=== PATIENT | male | born 1965 | race Caucasian/White ===

== ENCOUNTER 2016-12-05 14:19 | Emergency (ER) | payer OTHER ==
[~2016-12-05] VITALS: Ht 154.9 cm; Wt 65.8 kg
[~2016-12-05 14:19] MED LIST: ANAFRANIL50 MG PO; BACTRIM DS 8001 TA1 PO; CATAFLAM50 MG PO; CELEXA40 MG PO; CEPHALEXIN500 M1 PO; CLOMIPRAMINE HC50 MG PO; CLONAZEPAM1 M1 PO; CYMBALTA30 MG PO; DONNATAL1 TAB PO; GEODON20 MG PO; GEODON60 MG PO; KLONOPIN1 MG PO; LEVAQUIN750 M1 PO; MUCINEX ER600 MG PO; NORFLEX100 MG PO; OMEGA-3 FISH1200 MG PO; PEPCID20 MG PO; PRAVACHOL20 MG PO; PREDNISONE10 MG PO; PRILOSEC20 MG PO; VIBRAMYCIN100 MG PO; VITAMIN D1000 IU PO; XANAX1 MG PO
[2016-12-05 14:34] VITALS: BP 138/95
[2016-12-05] MEDS ORDERED: XANAX1 MG PO (15:07)
[2016-12-05 15:17] LABS: BASO # 0.1 10*3/uL (0.0-0.1); BASO % 0.5 % (0.0-1.0); EOS # 0.1 10*3/uL (0.0-0.4); HEMATOCRIT 48.9 % (42.0-52.0); HEMOGLOBIN 16.4 g/dl (14.0-18.0); LYMPH # 2.8 10*3/uL (1.3-4.4); LYMPH % 29.4 % (27.0-41.0); MEAN CELL VOLUME 86.7 fl (80.0-94.0); MEAN CORPUSCULAR HGB 29.1 pg (27.0-31.0); MEAN CORPUSCULAR HGB CONC 33.5 g/dl (33.0-37.0); MONO # 0.6 10*3/uL (0.1-1.0); MONO % 5.8 % (3.0-9.0); NEUT # 5.9 10*3/uL (2.3-7.9); PLATELET COUNT AUTOMATED 240 10*3/uL (130-400); RED BLOOD COUNT 5.64 10*6/uL (4.50-5.90); RED CELL DISTRI WIDTH 12.7 % (0-14.5); WHITE BLOOD COUNT 9.4 10*3/uL (4.8-10.8)
[2016-12-05 15:33] LABS: MAGNESIUM 2.3 mg/dL (1.5-2.1)
[2016-12-05 15:34] LABS: ALBUMIN 4.1 gm/dl (3.1-4.5); ALKALINE PHOSPHATASE 70 U/L (45-117); BILIRUBIN, TOTAL 0.5 mg/dl (0.2-1.0); BUN 11 mg/dl (7-24); CARBON DIOXIDE 26 mmol/L (21-32); CHLORIDE 106 mmol/L (98-107); EST GLOM FILT AFRICAN AMERICAN > 60 ml/min; GLUCOSE 97 mg/dL (65-99); POTASSIUM 4.1 mmol/L (3.5-5.1); SGOT/AST 13 IU/L (3-35); SGPT/ALT 32 U/L (12-78); SODIUM 142 mmol/L (136-145); TOTAL PROTEIN 8.1 gm/dL (6.4-8.2)
[2016-12-05 15:50] LABS: BILIRUBIN NEGATIVE (NEGATIVE); BLOOD TRACE-INTACT (NEGATIVE); CLARITY CLEAR (CLEAR); COLOR YELLOW (YELLOW); GLUCOSE NEGATIVE (NEGATIVE); KETONE TRACE (NEGATIVE); LEUKO ESTERASE NEGATIVE (NEGATIVE); NITRITE NEGATIVE (NEGATIVE); PROTEIN NEGATIVE (NEGATIVE); SPECIFIC GRAVITY <= 1.005 (1.005-1.030); UROBILINOGEN 0.2 E.U./dl (0.2-1.0)
[2016-12-05 16:15] LABS: RBC 0-2 rbc/hpf (0-2); URINE REFLEX COMMENT NO (NO); WBC 0-2 wbc/hpf (0-5)
[2016-12-05] MEDS ORDERED: IBU800 MG PO (16:40)
[2016-12-10] MEDS ORDERED: KLONOPIN1 M1 PO (01:01)
[2016-12-10] MEDS ORDERED: K-TAB20 MEQ PO (01:29)
[2017-01-05] MEDS ORDERED: ARIPIPRAZOLE10 MG PO (17:43)
[2017-01-05] MEDS ORDERED: FLUOXETINE HYDR20 M1 PO (17:43)
[2017-01-05] MEDS ORDERED: SERTRALINE HYD100 MG PO (17:44)
[2017-02-02] MEDS ORDERED: ABILIFY20 MG PO ×2 (12:10→13:25)
[2017-02-02] MEDS ORDERED: TRAZODONE50 MG PO (12:10)
== END 2016-12-05 16:44 | disposition home or self-care (01) ==
LOC: ED 14:19
PROVIDERS: Student in an Organized Health Care Education/Training Program
DX: R10.33 Periumbilical pain (principal); R30.0 Dysuria; F41.9 Anxiety disorder, unspecified; J44.9 Chronic obstructive pulmonary disease, unspecified; E78.5 Hyperlipidemia, unspecified; K21.9 Gastro-esophageal reflux disease without esophagitis; F32.9 Major depressive disorder, single episode, unspecified; F20.9 Schizophrenia, unspecified; Z88.0 Allergy status to penicillin; Z88.1 Allergy status to other antibiotic agents; Z88.6 Allergy status to analgesic agent; Z88.8 Allergy status to other drugs, medicaments and biological substances; Z79.899 Other long term (current) drug therapy

== ENCOUNTER 2016-12-08 12:26 | Emergency (ER) | payer OTHER ==
[~2016-12-08] VITALS: Ht 180.3 cm; Wt 65.8 kg
[~2016-12-08 12:26] MED LIST changes: +IBU800 MG PO
[2016-12-08] MEDS ORDERED: CITALOPRAM HYDR40 MG PO (13:00)
[2016-12-08 14:31] LABS: BASO # 0.1 10*3/uL (0.0-0.1); BASO % 0.5 % (0.0-1.0); EOS # 0.1 10*3/uL (0.0-0.4); EOS % 0.8 % (1.0-4.0); HEMATOCRIT 46.9 % (42.0-52.0); HEMOGLOBIN 15.9 g/dl (14.0-18.0); LYMPH # 2.7 10*3/uL (1.3-4.4); LYMPH % 28.8 % (27.0-41.0); MEAN CELL VOLUME 85.9 fl (80.0-94.0); MEAN CORPUSCULAR HGB 29.1 pg (27.0-31.0); MEAN CORPUSCULAR HGB CONC 33.9 g/dl (33.0-37.0); MEAN PLATELET VOLUME 10.1 fl (9.6-12.3); MONO # 0.5 10*3/uL (0.1-1.0); MONO % 5.7 % (3.0-9.0); NEUT % 64.1 % (47.0-73.0); PLATELET COUNT AUTOMATED 230 10*3/uL (130-400); RED BLOOD COUNT 5.46 10*6/uL (4.50-5.90); RED CELL DISTRI WIDTH 12.5 % (0-14.5); WHITE BLOOD COUNT 9.4 10*3/uL (4.8-10.8)
[2016-12-08 14:32] LABS: BILIRUBIN NEGATIVE (NEGATIVE); BLOOD NEGATIVE (NEGATIVE); CLARITY CLEAR (CLEAR); COLOR STRAW (YELLOW); GLUCOSE NEGATIVE (NEGATIVE); KETONE TRACE (NEGATIVE); LEUKO ESTERASE NEGATIVE (NEGATIVE); NITRITE NEGATIVE (NEGATIVE); PROTEIN NEGATIVE (NEGATIVE); SPECIFIC GRAVITY <= 1.005 (1.005-1.030); UROBILINOGEN 0.2 E.U./dl (0.2-1.0)
[2016-12-08 14:47] LABS: RBC 0-2 rbc/hpf (0-2); URINE REFLEX COMMENT NO (NO); WBC 0-2 wbc/hpf (0-5)
[2016-12-08 14:47] LABS: ALKALINE PHOSPHATASE 62 U/L (45-117); BILIRUBIN, TOTAL 0.5 mg/dl (0.2-1.0); BUN 8 mg/dl (7-24); CARBON DIOXIDE 27 mmol/L (21-32); CHLORIDE 107 mmol/L (98-107); EST GLOM FILT AFRICAN AMERICAN > 60 ml/min; GLUCOSE 78 mg/dL (65-99); POTASSIUM 3.6 mmol/L (3.5-5.1); SGOT/AST 13 IU/L (3-35); SGPT/ALT 22 U/L (12-78); SODIUM 143 mmol/L (136-145); TOTAL PROTEIN 7.4 gm/dL (6.4-8.2)
[2016-12-08] MEDS ORDERED: Motrin,Rufen800 MG PO (17:56)
[2016-12-08 20:01] VITALS: BP 112/68
[2016-12-10] MEDS ORDERED: KLONOPIN1 M1 PO (01:01)
[2016-12-10] MEDS ORDERED: K-TAB20 MEQ PO (01:29)
[2017-01-05] MEDS ORDERED: FLUOXETINE HYDR20 M1 PO (17:43)
[2017-01-05] MEDS ORDERED: ARIPIPRAZOLE10 MG PO (17:43)
[2017-01-05] MEDS ORDERED: SERTRALINE HYD100 MG PO (17:44)
[2017-02-02] MEDS ORDERED: ABILIFY20 MG PO ×2 (12:10→13:25)
[2017-02-02] MEDS ORDERED: TRAZODONE50 MG PO (12:10)
== END 2016-12-08 22:46 | disposition home or self-care (01) ==
LOC: ED 12:26
PROVIDERS: Nurse Practitioner Family
DX: G89.29 Other chronic pain (principal); R10.30 Lower abdominal pain, unspecified; R51 Headache; Z88.0 Allergy status to penicillin; Z88.1 Allergy status to other antibiotic agents; Z88.6 Allergy status to analgesic agent; Z88.8 Allergy status to other drugs, medicaments and biological substances; Z79.899 Other long term (current) drug therapy; F41.9 Anxiety disorder, unspecified; J44.9 Chronic obstructive pulmonary disease, unspecified; K21.9 Gastro-esophageal reflux disease without esophagitis; E78.5 Hyperlipidemia, unspecified; F20.9 Schizophrenia, unspecified; F32.9 Major depressive disorder, single episode, unspecified; F17.200 Nicotine dependence, unspecified, uncomplicated

== ENCOUNTER 2016-12-15 17:18 | Emergency (ER) | payer OTHER ==
[~2016-12-15] VITALS: Ht 180.3 cm; Wt 65.8 kg
[~2016-12-15 17:18] MED LIST changes: +CITALOPRAM HYDR40 MG PO; +K-TAB20 MEQ PO; +KLONOPIN1 M1 PO; +Motrin,Rufen800 MG PO
[2016-12-15 17:27] VITALS: BP 130/88
[2016-12-15 18:29] LABS: BASO # 0.1 10*3/uL (0.0-0.1); BASO % 0.4 % (0.0-1.0); EOS # 0.1 10*3/uL (0.0-0.4); EOS % 0.6 % (1.0-4.0); HEMOGLOBIN 14.3 g/dl (14.0-18.0); IG # 0.1 10*3/uL (0.0-0.1); LYMPH # 2.8 10*3/uL (1.3-4.4); MEAN CELL VOLUME 88.3 fl (80.0-94.0); MEAN CORPUSCULAR HGB 29.4 pg (27.0-31.0); MEAN CORPUSCULAR HGB CONC 33.3 g/dl (33.0-37.0); MEAN PLATELET VOLUME 10.8 fl (9.6-12.3); MONO # 0.7 10*3/uL (0.1-1.0); MONO % 4.2 % (3.0-9.0); NEUT % 76.4 % (47.0-73.0); PLATELET COUNT AUTOMATED 196 10*3/uL (130-400); RED BLOOD COUNT 4.87 10*6/uL (4.50-5.90); RED CELL DISTRI WIDTH 12.6 % (0-14.5); WHITE BLOOD COUNT 15.8 10*3/uL (4.8-10.8)
[2016-12-15 18:50] LABS: ALBUMIN 3.7 gm/dl (3.1-4.5); ALKALINE PHOSPHATASE 53 U/L (45-117); BILIRUBIN, TOTAL 0.4 mg/dl (0.2-1.0); BUN 9 mg/dl (7-24); CARBON DIOXIDE 27 mmol/L (21-32); CHLORIDE 106 mmol/L (98-107); EST GLOM FILT AFRICAN AMERICAN > 60 ml/min; GLUCOSE 76 mg/dL (65-99); POTASSIUM 4.2 mmol/L (3.5-5.1); SGOT/AST 10 IU/L (3-35); SGPT/ALT 18 U/L (12-78); SODIUM 144 mmol/L (136-145); TOTAL PROTEIN 6.9 gm/dL (6.4-8.2)
[2017-01-05] MEDS ORDERED: FLUOXETINE HYDR20 M1 PO (17:43)
[2017-01-05] MEDS ORDERED: ARIPIPRAZOLE10 MG PO (17:43)
[2017-01-05] MEDS ORDERED: SERTRALINE HYD100 MG PO (17:44)
[2017-02-02] MEDS ORDERED: ABILIFY20 MG PO ×2 (12:10→13:25)
[2017-02-02] MEDS ORDERED: TRAZODONE50 MG PO (12:10)
== END 2016-12-15 19:53 | disposition home or self-care (01) ==
LOC: ED 17:18
PROVIDERS: Nurse Practitioner Family
DX: R10.31 Right lower quadrant pain (principal); R10.32 Left lower quadrant pain; R10.12 Left upper quadrant pain; R11.2 Nausea with vomiting, unspecified; F17.200 Nicotine dependence, unspecified, uncomplicated; Z90.89 Acquired absence of other organs; Z98.890 Other specified postprocedural states; Z88.0 Allergy status to penicillin; Z88.6 Allergy status to analgesic agent; Z88.1 Allergy status to other antibiotic agents; Z88.5 Allergy status to narcotic agent; Z88.8 Allergy status to other drugs, medicaments and biological substances

== ENCOUNTER 2016-12-19 11:56 | Emergency (ER) | payer OTHER ==
[~2016-12-19] VITALS: Ht 180.3 cm; Wt 65.8 kg
[2016-12-19] MEDS ORDERED: XANAX2 M1 PO (12:15)
[2016-12-19 12:32] LABS: BILIRUBIN NEGATIVE (NEGATIVE); BLOOD NEGATIVE (NEGATIVE); CLARITY CLEAR (CLEAR); COLOR YELLOW (YELLOW); GLUCOSE NEGATIVE (NEGATIVE); KETONE NEGATIVE (NEGATIVE); LEUKO ESTERASE NEGATIVE (NEGATIVE); NITRITE NEGATIVE (NEGATIVE); PH 6.5 (5.0-9.0); PROTEIN NEGATIVE (NEGATIVE); SPECIFIC GRAVITY <= 1.005 (1.005-1.030); UROBILINOGEN 0.2 E.U./dl (0.2-1.0)
[2016-12-19 12:41] LABS: EPITHELIAL CELLS 0-2; URINE AMPHETAMINES < 1000 (1000ng/ml); URINE BARBITURATES < 200 (200ng/ml); URINE COCAINE < 300 (300ng/ml)
[2016-12-19 12:42] LABS: BASO % 0.4 % (0.0-1.0); EOS # 0.1 10*3/uL (0.0-0.4); EOS % 1.8 % (1.0-4.0); HEMATOCRIT 48.1 % (42.0-52.0); HEMOGLOBIN 16.3 g/dl (14.0-18.0); LYMPH # 2.3 10*3/uL (1.3-4.4); LYMPH % 29.3 % (27.0-41.0); MEAN CELL VOLUME 87.3 fl (80.0-94.0); MEAN CORPUSCULAR HGB 29.6 pg (27.0-31.0); MEAN CORPUSCULAR HGB CONC 33.9 g/dl (33.0-37.0); MEAN PLATELET VOLUME 10.4 fl (9.6-12.3); MONO # 0.3 10*3/uL (0.1-1.0); NEUT # 5.1 10*3/uL (2.3-7.9); NEUT % 64.4 % (47.0-73.0); PLATELET COUNT AUTOMATED 240 10*3/uL (130-400); RED BLOOD COUNT 5.51 10*6/uL (4.50-5.90); RED CELL DISTRI WIDTH 12.6 % (0-14.5)
[2016-12-19 12:42] LABS: URINE REFLEX COMMENT NO (NO)
[2016-12-19 13:00] LABS: BUN 11 mg/dl (7-24); CARBON DIOXIDE 29 mmol/L (21-32); CHLORIDE 105 mmol/L (98-107); EST GLOM FILT AFRICAN AMERICAN > 60 ml/min; GLUCOSE 88 mg/dL (65-99); POTASSIUM 4.3 mmol/L (3.5-5.1); SODIUM 142 mmol/L (136-145)
[2016-12-20 19:26] VITALS: BP 147/87
[2016-12-20] MEDS ORDERED: XANAX2 M1 PO (19:31)
[2017-01-05] MEDS ORDERED: FLUOXETINE HYDR20 M1 PO (17:43)
[2017-01-05] MEDS ORDERED: ARIPIPRAZOLE10 MG PO (17:43)
[2017-01-05] MEDS ORDERED: SERTRALINE HYD100 MG PO (17:44)
[2017-02-02] MEDS ORDERED: TRAZODONE50 MG PO (12:10)
[2017-02-02] MEDS ORDERED: ABILIFY20 MG PO ×2 (12:10→13:25)
== END 2016-12-20 20:11 | disposition home or self-care (01) ==
LOC: ED 11:56
PROVIDERS: Emergency Medicine
DX: F41.9 Anxiety disorder, unspecified (principal); F32.9 Major depressive disorder, single episode, unspecified; F17.200 Nicotine dependence, unspecified, uncomplicated; J44.9 Chronic obstructive pulmonary disease, unspecified; K21.9 Gastro-esophageal reflux disease without esophagitis; E78.5 Hyperlipidemia, unspecified; F20.9 Schizophrenia, unspecified; R00.2 Palpitations; R00.0 Tachycardia, unspecified; Z98.890 Other specified postprocedural states; Z90.89 Acquired absence of other organs; Z88.0 Allergy status to penicillin; Z88.6 Allergy status to analgesic agent; Z88.1 Allergy status to other antibiotic agents; Z88.5 Allergy status to narcotic agent

== ENCOUNTER 2017-03-11 14:41 | Emergency (ER) | payer OTHER ==
[~2017-03-11] VITALS: Wt 65.8 kg
[~2017-03-11 14:41] MED LIST changes: +ABILIFY20 MG PO; +ARIPIPRAZOLE10 MG PO; +FLUOXETINE HYDR20 M1 PO; +SERTRALINE HYD100 MG PO; +TRAZODONE50 MG PO; +XANAX2 M1 PO
[2017-03-11 14:45] VITALS: BP 125/85
== END 2017-03-11 15:14 | disposition home or self-care (01) ==
LOC: ED 14:41
DX: Z76.0 Encounter for issue of repeat prescription (principal); F41.9 Anxiety disorder, unspecified; Z88.0 Allergy status to penicillin; Z88.1 Allergy status to other antibiotic agents; Z88.6 Allergy status to analgesic agent; Z88.8 Allergy status to other drugs, medicaments and biological substances; F12.10 Cannabis abuse, uncomplicated; F17.200 Nicotine dependence, unspecified, uncomplicated

== ENCOUNTER 2017-03-11 18:17 | Emergency (ER) | payer OTHER ==
[~2017-03-11] VITALS: Ht 180.3 cm; Wt 65.8 kg
[2017-03-11 18:42] LABS: BILIRUBIN NEGATIVE (NEGATIVE); BLOOD 1+ (NEGATIVE); CLARITY CLEAR (CLEAR); COLOR YELLOW (YELLOW); GLUCOSE NEGATIVE (NEGATIVE); KETONE NEGATIVE (NEGATIVE); LEUKO ESTERASE NEGATIVE (NEGATIVE); NITRITE NEGATIVE (NEGATIVE); PH 5.5 (5.0-9.0); PROTEIN NEGATIVE (NEGATIVE)
[2017-03-11 19:08] LABS: BACTERIA TRACE; URINE REFLEX COMMENT YES (NO); WBC 0-2 wbc/hpf (0-5)
[2017-03-11 19:13] LABS: BASO % 0.2 % (0.0-1.0); EOS # 0.2 10*3/uL (0.0-0.4); EOS % 1.8 % (1.0-4.0); HEMATOCRIT 40.8 % (42.0-52.0); HEMOGLOBIN 13.8 g/dl (14.0-18.0); LYMPH # 2.5 10*3/uL (1.3-4.4); LYMPH % 26.3 % (27.0-41.0); MEAN CELL VOLUME 86.4 fl (80.0-94.0); MEAN CORPUSCULAR HGB 29.2 pg (27.0-31.0); MEAN CORPUSCULAR HGB CONC 33.8 g/dl (33.0-37.0); MEAN PLATELET VOLUME 9.9 fl (9.6-12.3); MONO # 0.6 10*3/uL (0.1-1.0); MONO % 5.8 % (3.0-9.0); NEUT # 6.2 10*3/uL (2.3-7.9); NEUT % 65.6 % (47.0-73.0); PLATELET COUNT AUTOMATED 189 10*3/uL (130-400); RED BLOOD COUNT 4.72 10*6/uL (4.50-5.90); RED CELL DISTRI WIDTH 12.7 % (0-14.5); WHITE BLOOD COUNT 9.4 10*3/uL (4.8-10.8)
[2017-03-11 19:21] VITALS: BP 142/92
[2017-03-11 19:27] LABS: ALBUMIN 3.2 gm/dl (3.1-4.5); ALKALINE PHOSPHATASE 59 U/L (45-117); BILIRUBIN, TOTAL 0.3 mg/dl (0.2-1.0); BUN 15 mg/dl (7-24); CARBON DIOXIDE 29 mmol/L (21-32); CHLORIDE 105 mmol/L (98-107); EST GLOM FILT AFRICAN AMERICAN > 60 ml/min; GLUCOSE 88 mg/dL (65-99); POTASSIUM 3.9 mmol/L (3.5-5.1); SGOT/AST 19 IU/L (3-35); SGPT/ALT 28 U/L (12-78); SODIUM 142 mmol/L (136-145); TOTAL PROTEIN 6.8 gm/dL (6.4-8.2)
== END 2017-03-11 19:41 | disposition home or self-care (01) ==
LOC: ED 18:17
PROVIDERS: Emergency Medicine; Student in an Organized Health Care Education/Training Program
DX: R31.9 Hematuria, unspecified (principal); F41.9 Anxiety disorder, unspecified; K21.9 Gastro-esophageal reflux disease without esophagitis; F32.9 Major depressive disorder, single episode, unspecified; E78.5 Hyperlipidemia, unspecified; J44.9 Chronic obstructive pulmonary disease, unspecified; Z88.0 Allergy status to penicillin; Z88.1 Allergy status to other antibiotic agents; Z88.6 Allergy status to analgesic agent; Z88.8 Allergy status to other drugs, medicaments and biological substances

== ENCOUNTER 2017-03-13 14:56 | Emergency (ER) | payer OTHER ==
[~2017-03-13] VITALS: Ht 208.2 cm; Wt 660.4 kg
[2017-03-13 15:03] VITALS: BP 145/82
== END 2017-03-13 15:12 | disposition home or self-care (01) ==
LOC: ED 14:56
DX: Z76.0 Encounter for issue of repeat prescription (principal); R03.0 Elevated blood-pressure reading, without diagnosis of hypertension; F17.200 Nicotine dependence, unspecified, uncomplicated; F41.1 Generalized anxiety disorder; F43.0 Acute stress reaction; F20.9 Schizophrenia, unspecified; F32.9 Major depressive disorder, single episode, unspecified; K21.9 Gastro-esophageal reflux disease without esophagitis; J44.9 Chronic obstructive pulmonary disease, unspecified; E78.5 Hyperlipidemia, unspecified; G89.29 Other chronic pain; Z79.899 Other long term (current) drug therapy; Z88.0 Allergy status to penicillin; Z88.1 Allergy status to other antibiotic agents; Z88.6 Allergy status to analgesic agent; Z88.8 Allergy status to other drugs, medicaments and biological substances

== ENCOUNTER 2017-07-03 16:17 | Inpatient (IN) | payer OTHER ==
[~2017-07-03] VITALS: Ht 180.3 cm; Wt 65.9 kg
--- NOTE | ~2017-07-03 | CON ---
[place], [place] REPORT OF CONSULTATION NAME: YARELI CARPENTER JR [facility] #: [id number] UNIT #: [id number] ROOM: 516 DOCTOR: MICHELLE SKAGGS MD BIRTHDATE: [birth year] DOS: 07/04/2017 The patient was seen today 07/04/2017 at the request of Dr. Gege Reyes for evaluation of chest discomfort. HISTORY OF PRESENT ILLNESS: He is a 52-year-old man with a history of schizophrenia who presented to the Emergency Room with hematuria. He did have some abdominal discomfort associated with this. In the Emergency Room, he was felt to be having chest discomfort and therefore, was admitted for further evaluation of that. At the current time, the patient denies having any chest pain and states that he did not have chest pain in the Emergency Room either. He has told the same history to nursing staff on the medical unit as well as to Dr. Reyes. The patient has had a history of atypical chest pain and was evaluated for this by my partner, Dr. Mike Walls in September 2016. No pathology was found. PAST MEDICAL HISTORY: Includes: 1. Schizophrenia with multiple ER admissions. 2. Generalized anxiety disorder. 3. Gastroesophageal reflux disease. 4. Genital herpes. MEDICATIONS: Prior to admission, alprazolam 2 mg q.8h., Abilify 20 mg daily, trazodone 50 mg at bedtime. ALLERGIES: He lists allergies to multiple medications including PENICILLIN, ACETOMINOPHEN, AZITHROMYCIN, CODEINE, HYDROCODONE, NAPROXEN, RISPERIDONE, AND HYDROXYZINE. REVIEW OF SYSTEMS: The patient denies diplopia or loss of vision. He denies lightheadedness or syncope. He denies orthopnea or PND. He denies fevers, chills, sweats or recent weight change. He denies palpitations, lightheadedness or syncope. Denies any focal weakness. He denies nausea or vomiting. He denies hemoptysis or hematemesis. He denies any pedal edema or abdominal swelling. He denies any skin rashes. He denies any blood in his bowels. He has had blood in his urine and some epigastric pain. He denies any polydipsia, polyuria or heat or cold intolerance. Remainder of the review of systems is negative except as noted above. SOCIAL HISTORY: The patient smokes about a half pack of cigarettes a day. He does not use any alcohol and lives with a cousin. PHYSICAL EXAMINATION: GENERAL: The patient is a slender white male, who is awake, alert and oriented. He has a very flat affect. VITAL SIGNS: Pulse is 88 and regular, blood pressure is 120/72. He is afebrile. He weighs 65.9 kg and has a body mass index of 20.3. HEENT: Normocephalic, atraumatic. Extraocular muscles are intact. Sclerae are clear. Pupils are equal, round and reactive to light. Oral mucosa is moist. [place], [place] REPORT OF CONSULTATION NAME: YARELI CARPENTER JR UNIT #: [id number] ROOM: 516 DOCTOR: MICHELLE SKAGGS MD BIRTHDATE: [birth year] Tongue is midline. NECK: Supple. He has no jugular distention. Carotids are full without bruits. He has no neck or supraclavicular masses. No thyromegaly. LUNGS: Respirations are unlabored. CHEST: Clear to auscultation and percussion. He has no presacral edema or chest wall tenderness. CARDIOVASCULAR: His heart has a regular rhythm. He has no murmurs, rubs or gallops. The PMI is not displaced. There is no precordial heave, lift or thrill. ABDOMEN: Soft and normoactive without masses, organomegaly or bruits. EXTREMITIES: Showed no edema. Peripheral pulses are palpable in the feet. LABORATORY DATA: Electrocardiogram shows sinus rhythm with a right bundle branch block. I compared it against a previous tracing dated 02/02/2017, and there has been no change. The patient did have a myocardial perfusion study done on 09/30/2016. He had diaphragmatic attenuation artifact, but no evidence for ischemia. Ejection fraction was 75%. An echocardiogram done on 09/30/2016 showed sinus rhythm with an ejection fraction of 60%. There was stage I diastolic relaxation abnormalities, no pericardial effusion or valvular disease was seen. IMPRESSION: In summary, he is a 52-year-old man who may have had some epigastric pain, but currently denies any chest pain. His electrocardiogram shows no changes. Cardiac troponin was normal and a cardiac workup in September 2016, showed no evidence for structural or ischemic heart disease. IMPRESSION: 1. Atypical chest pain. No evidence for cardiac source of chest discomfort. 2. History of schizophrenia. PLAN: The patient appears to be hemodynamically compensated without any evidence for coronary artery disease. He may be discharged to home from my standpoint. We will follow up with him as needed. I thank Dr. Reyes for asking our advice regarding his care. MICHELLE SKAGGS MD CM:CONSTR:REPORT OF CONSULTATION 1636 07/04/17 2244 interface
--- NOTE | ~2017-07-03 | WRIGHTHP ---
[place], [place] PATIENT HISTORY AND PHYSICAL EXAM NAME: YARELI CARPENTER JR ACC #: [id number] UNIT #: [id number] ROOM: 516 DOCTOR: LINDA YOU MD BIRTHDATE: [birth year] DOS: 07/03/2017 HISTORY OF PRESENT ILLNESS: The patient is 52 years old. The patient comes in with complaints that he has bleeding when he urinates. He has no abdominal pain, but some minimal urinary urgency and dysuria. The patient states he never had any complaints of chest pain. In fact, the ER admitted him with a diagnosis of chest pain and he absolutely declined, has not had any chest pain as per the patient. He came to the Emergency Room just because of the bleeding that he noticed when he urinates. PAST MEDICAL HISTORY: Significant for: 1. Schizophrenia with multiple ER visits. 2. Generalized anxiety disorder. 3. Genital herpes. 4. Gastroesophageal reflux disorder. MEDICATIONS: Xanax 2 mg q. 8, Abilify 20 mg daily, trazodone 50 at bedtime. SOCIAL HISTORY: Smokes about half a pack of cigarettes a day. Denies using any alcohol. Lives with his cousin. PHYSICAL EXAMINATION: VITAL SIGNS: Graphic trend shows that he is afebrile. Blood pressure 98/52, pulse of 72, respirations 18, temperature 99.0. LUNGS: Diminished breath sounds. No wheezes, rales or rhonchi heard. HEART: Regular. ABDOMEN: Obese. EXTREMITIES: Without any edema. ASSESSMENT AND PLAN: 1. Painless hematuria. His urinalysis does show 3+ blood, 1+ leukocyte esterase, negative nitrite. The patient will be ordered a urine culture, was placed on IV antibiotics and also will have the CT of the abdomen and pelvis to rule out renal tumor or bladder tumors. 2. The patient has schizophrenia. Continue home medications. 3. He was admitted with complaints of chest pain from the ER, but the patient claims that he has not had any chest pains. Rule out myocardial infarction protocol has been negative. Cardiology was consulted. [place], [place] PATIENT HISTORY AND PHYSICAL EXAM NAME: YARELI CARPENTER JR UNIT #: [id number] ROOM: 516 DOCTOR: LINDA YOU MD BIRTHDATE: [birth year] LINDA YOU MD CM:EUGENIOS:PATIENT HISTORY AND PHYSICAL EXAMINATION 7 1 LINDA YOU MD 07/04/17811 interface
[2017-07-03 16:31] VITALS: BP 125/77
[2017-07-03 17:02] LABS: BASO % 0.3 % (0.0-1.0); HEMATOCRIT 42.2 % (42.0-52.0); HEMOGLOBIN 14.4 g/dl (14.0-18.0); LYMPH # 1.6 10*3/uL (1.3-4.4); LYMPH % 14.9 % (27.0-41.0); MEAN CELL VOLUME 86.3 fl (80.0-94.0); MEAN CORPUSCULAR HGB 29.4 pg (27.0-31.0); MEAN CORPUSCULAR HGB CONC 34.1 g/dl (33.0-37.0); MEAN PLATELET VOLUME 10.5 fl (9.6-12.3); MONO # 0.3 10*3/uL (0.1-1.0); MONO % 2.4 % (3.0-9.0); NEUT # 8.6 10*3/uL (2.3-7.9); NEUT % 82.1 % (47.0-73.0); PLATELET COUNT AUTOMATED 110 10*3/uL (130-400); RED BLOOD COUNT 4.89 10*6/uL (4.50-5.90); WHITE BLOOD COUNT 10.5 10*3/uL (4.8-10.8)
[2017-07-03 17:11] LABS: PROTHROMBIN TIME 11.1 SECONDS (9.0-12.4)
[2017-07-03 17:19] LABS: ALBUMIN 3.2 gm/dl (3.1-4.5); ALKALINE PHOSPHATASE 66 U/L (45-117); BILIRUBIN, TOTAL 0.7 mg/dl (0.2-1.0); BUN 17 mg/dl (7-24); CARBON DIOXIDE 25 mmol/L (21-32); CHLORIDE 104 mmol/L (98-107); EST GLOM FILT AFRICAN AMERICAN > 60 ml/min; GLUCOSE 133 mg/dL (65-99); MAGNESIUM 1.8 mg/dL (1.5-2.1); POTASSIUM 3.4 mmol/L (3.5-5.1); SGOT/AST 77 IU/L (3-35); SGPT/ALT 42 U/L (12-78); SODIUM 137 mmol/L (136-145); TOTAL PROTEIN 7.1 gm/dL (6.4-8.2); TROPONIN I < 0.015 ng/ml (<0.045)
[2017-07-03 18:12] LABS: BILIRUBIN 1+ (NEGATIVE); BLOOD 3+ (NEGATIVE); CLARITY SL CLOUDY (CLEAR); COLOR YELLOW (YELLOW); GLUCOSE NEGATIVE (NEGATIVE); KETONE NEGATIVE (NEGATIVE); LEUKO ESTERASE 1+ (NEGATIVE); NITRITE NEGATIVE (NEGATIVE); PH 5.5 (5.0-9.0); PROTEIN TRACE (NEGATIVE); SPECIFIC GRAVITY 1.025 (1.005-1.030)
[2017-07-03 18:27] LABS: RBC 51-100 rbc/hpf (0-2); URINE REFLEX COMMENT YES (NO)
[2017-07-03 19:26] VITALS: BP 109/71
[2017-07-03 19:49] VITALS: BP 115/77
[2017-07-03 20:10] VITALS: BP 116/69
[2017-07-04] VITALS: BP 100/56
[2017-07-04 04:00] VITALS: BP 87/50; BP 98/52
[2017-07-04 08:11] VITALS: BP 96/63
[2017-07-04 12:42] VITALS: BP 98/74
[2017-07-04 16:31] VITALS: BP 120/72
[2017-07-04 21:09] VITALS: BP 108/81
== END 2017-07-04 21:30 | disposition home or self-care (01) | DRG 690 ==
LOC: ED 16:17 → EDHOLD 18:37 → 5E 18:37
PROVIDERS: Student in an Organized Health Care Education/Training Program
DX: N30.01 Acute cystitis with hematuria (principal); F20.9 Schizophrenia, unspecified; B95.0 Streptococcus, group A, as the cause of diseases classified elsewhere; F41.1 Generalized anxiety disorder; R07.89 Other chest pain; K21.9 Gastro-esophageal reflux disease without esophagitis; F17.210 Nicotine dependence, cigarettes, uncomplicated; Z88.0 Allergy status to penicillin; Z88.1 Allergy status to other antibiotic agents; Z88.5 Allergy status to narcotic agent; Z88.8 Allergy status to other drugs, medicaments and biological substances; Z79.899 Other long term (current) drug therapy

== ENCOUNTER 2017-07-08 14:23 | Emergency (ER) | payer OTHER ==
[~2017-07-08] VITALS: Ht 180.3 cm; Wt 65.8 kg
[2017-07-08 14:59] LABS: BILIRUBIN NEGATIVE (NEGATIVE); BLOOD 3+ (NEGATIVE); CLARITY CLEAR (CLEAR); COLOR YELLOW (YELLOW); GLUCOSE NEGATIVE (NEGATIVE); KETONE NEGATIVE (NEGATIVE); LEUKO ESTERASE 1+ (NEGATIVE); NITRITE NEGATIVE (NEGATIVE); PH 5.5 (5.0-9.0); PROTEIN NEGATIVE (NEGATIVE); SPECIFIC GRAVITY <= 1.005 (1.005-1.030); UROBILINOGEN 0.2 E.U./dl (0.2-1.0)
[2017-07-08 15:14] LABS: BACTERIA TRACE; URINE REFLEX COMMENT YES (NO)
[2017-07-08] MEDS ORDERED: LEVAQUIN750 M1 PO (15:34)
[2017-07-08 15:50] VITALS: BP 128/81
== END 2017-07-08 20:38 | disposition home or self-care (01) ==
LOC: ED 14:23
PROVIDERS: Physician Assistant
DX: N30.01 Acute cystitis with hematuria (principal); F17.200 Nicotine dependence, unspecified, uncomplicated; Z88.0 Allergy status to penicillin; Z88.1 Allergy status to other antibiotic agents; Z88.6 Allergy status to analgesic agent; Z88.8 Allergy status to other drugs, medicaments and biological substances; Z79.899 Other long term (current) drug therapy

== ENCOUNTER 2017-11-12 21:07 | Emergency (ER) | payer OTHER ==
[~2017-11-12] VITALS: Ht 180.3 cm; Wt 68.0 kg
[2017-11-12 21:14] VITALS: BP 151/91
[2017-11-12 21:51] LABS: BILIRUBIN NEGATIVE (NEGATIVE); BLOOD NEGATIVE (NEGATIVE); CLARITY TURBID (CLEAR); COLOR YELLOW (YELLOW); GLUCOSE NEGATIVE (NEGATIVE); KETONE NEGATIVE (NEGATIVE); LEUKO ESTERASE NEGATIVE (NEGATIVE); NITRITE NEGATIVE (NEGATIVE); PH 7.5 (5.0-9.0)
[2017-11-12 21:53] LABS: BASO # 0.1 10*3/uL (0.0-0.1); BASO % 0.5 % (0.0-1.0); EOS # 0.3 10*3/uL (0.0-0.4); EOS % 2.5 % (1.0-4.0); HEMATOCRIT 46.9 % (42.0-52.0); HEMOGLOBIN 16.1 g/dl (14.0-18.0); LYMPH # 4.9 10*3/uL (1.3-4.4); LYMPH % 39.3 % (27.0-41.0); MEAN CELL VOLUME 86.1 fl (80.0-94.0); MEAN CORPUSCULAR HGB 29.5 pg (27.0-31.0); MEAN CORPUSCULAR HGB CONC 34.3 g/dl (33.0-37.0); MEAN PLATELET VOLUME 9.9 fl (9.6-12.3); MONO # 0.6 10*3/uL (0.1-1.0); MONO % 5.1 % (3.0-9.0); NEUT # 6.6 10*3/uL (2.3-7.9); NEUT % 52.4 % (47.0-73.0); PLATELET COUNT AUTOMATED 212 10*3/uL (130-400); RED BLOOD COUNT 5.45 10*6/uL (4.50-5.90); WHITE BLOOD COUNT 12.5 10*3/uL (4.8-10.8)
[2017-11-12 21:59] LABS: BACTERIA 4+
[2017-11-12 22:09] LABS: ALBUMIN 3.7 gm/dl (3.1-4.5); ALKALINE PHOSPHATASE 79 U/L (45-117); BUN 17 mg/dl (7-24); CHLORIDE 107 mmol/L (98-107); CREATININE 1.13 mg/dL (0.70-1.30); LIPASE 195 U/L (73-393); POTASSIUM 3.7 mmol/L (3.5-5.1); SGOT/AST 24 IU/L (3-35); SGPT/ALT 34 U/L (12-78); SODIUM 140 mmol/L (136-145); TOTAL PROTEIN 7.7 gm/dL (6.4-8.2)
== END 2017-11-13 01:57 | disposition home or self-care (01) ==
LOC: ED 21:07
PROVIDERS: Emergency Medicine
DX: R10.31 Right lower quadrant pain (principal); J44.9 Chronic obstructive pulmonary disease, unspecified; F17.200 Nicotine dependence, unspecified, uncomplicated; K21.9 Gastro-esophageal reflux disease without esophagitis; E78.00 Pure hypercholesterolemia, unspecified; F32.9 Major depressive disorder, single episode, unspecified; F20.9 Schizophrenia, unspecified; K64.9 Unspecified hemorrhoids; Z90.89 Acquired absence of other organs; Z88.0 Allergy status to penicillin; Z88.1 Allergy status to other antibiotic agents; Z88.5 Allergy status to narcotic agent; Z88.8 Allergy status to other drugs, medicaments and biological substances

== ENCOUNTER 2018-02-10 11:39 | Emergency (ER) | payer OTHER ==
[~2018-02-10] VITALS: Ht 154.9 cm; Wt 71.2 kg
[2018-02-10 11:45] VITALS: BP 133/85
== END 2018-02-10 12:15 | disposition home or self-care (01) ==
LOC: ED 11:39
DX: L30.9 Dermatitis, unspecified (principal); F17.200 Nicotine dependence, unspecified, uncomplicated; F12.10 Cannabis abuse, uncomplicated; G89.29 Other chronic pain; J44.9 Chronic obstructive pulmonary disease, unspecified; K21.9 Gastro-esophageal reflux disease without esophagitis; E78.5 Hyperlipidemia, unspecified; Z90.89 Acquired absence of other organs; Z98.890 Other specified postprocedural states; Z88.0 Allergy status to penicillin; Z88.6 Allergy status to analgesic agent; Z88.5 Allergy status to narcotic agent; Z88.8 Allergy status to other drugs, medicaments and biological substances; Z79.899 Other long term (current) drug therapy

== ENCOUNTER 2018-12-07 14:56 | Emergency (ER) | payer MEDICAID ==
[~2018-12-07] VITALS: Ht 180.3 cm; Wt 68.0 kg
[2018-12-07 15:09] VITALS: BP 127/91
[2018-12-07 16:01] LABS: BASO # 0.1 10*3/uL (0.0-0.1); BASO % 0.4 % (0.0-1.0); EOS % 0.3 % (1.0-4.0); HEMATOCRIT 47.1 % (42.0-52.0); HEMOGLOBIN 16.2 g/dl (14.0-18.0); LYMPH # 2.8 10*3/uL (1.3-4.4); LYMPH % 22.6 % (27.0-41.0); MEAN CELL VOLUME 85.6 fl (80.0-94.0); MEAN CORPUSCULAR HGB 29.5 pg (27.0-31.0); MEAN CORPUSCULAR HGB CONC 34.4 g/dl (33.0-37.0); MEAN PLATELET VOLUME 10.6 fl (9.6-12.3); MONO # 0.6 10*3/uL (0.1-1.0); MONO % 4.6 % (3.0-9.0); NEUT # 8.8 10*3/uL (2.3-7.9); NEUT % 71.8 % (47.0-73.0); PLATELET COUNT AUTOMATED 224 10*3/uL (130-400); RED CELL DISTRI WIDTH 13.2 % (0-14.5); WHITE BLOOD COUNT 12.3 10*3/uL (4.8-10.8)
[2018-12-07 16:17] LABS: ALBUMIN 4.2 gm/dl (3.1-4.5); ALKALINE PHOSPHATASE 85 U/L (45-117); BUN 12 mg/dl (7-24); CHLORIDE 106 mmol/L (98-107); CREATININE 1.07 mg/dL (0.70-1.30); POTASSIUM 3.4 mmol/L (3.5-5.1); SGOT/AST 20 IU/L (3-35); SGPT/ALT 30 U/L (12-78); SODIUM 142 mmol/L (136-145); TOTAL PROTEIN 8.5 gm/dL (6.4-8.2)
[2018-12-07 16:24] LABS: ACETAMINOPHEN (TYLENOL) < 2.0 ug/ml (10-30); ETHYL ALCOHOL < 3.0 mg/dl (<3)
[2018-12-07 16:28] LABS: BILIRUBIN 1+ (NEGATIVE); BLOOD TRACE-LYSED (NEGATIVE); CLARITY CLEAR (CLEAR); COLOR YELLOW (YELLOW); GLUCOSE NEGATIVE (NEGATIVE); KETONE 2+ (NEGATIVE); LEUKO ESTERASE NEGATIVE (NEGATIVE); NITRITE NEGATIVE (NEGATIVE); PH 5.5 (5.0-9.0); SPECIFIC GRAVITY >= 1.030 (1.005-1.030); UROBILINOGEN 0.2 E.U./dl (0.2-1.0)
[2018-12-07 16:38] LABS: URINE AMPHETAMINES < 1000 (1000ng/ml); URINE BARBITURATES < 200 (200ng/ml); URINE BENZODIAZEPINES > 200 (200ng/ml); URINE CANNABINOIDS (THC) < 50 (50ng/ml); URINE COCAINE < 300 (300ng/ml); URINE METHADONE < 300 (300ng/ml); URINE OPIATES < 300 (300ng/ml)
[2018-12-07 16:47] LABS: URINE PHENCYCLIDINE < 25 (25ng/ml)
[2018-12-07 16:51] LABS: BACTERIA TRACE; EPITHELIAL CELLS 25-30; MUCOUS 1+
== END 2018-12-07 18:31 | disposition home or self-care (01) ==
LOC: ED 14:56
PROVIDERS: Nurse Practitioner Family
DX: F41.9 Anxiety disorder, unspecified (principal); R45.851 Suicidal ideations; F32.9 Major depressive disorder, single episode, unspecified; F20.9 Schizophrenia, unspecified; F17.200 Nicotine dependence, unspecified, uncomplicated; Z88.0 Allergy status to penicillin; Z88.6 Allergy status to analgesic agent; Z88.1 Allergy status to other antibiotic agents; Z88.5 Allergy status to narcotic agent; Z88.8 Allergy status to other drugs, medicaments and biological substances; Z79.2 Long term (current) use of antibiotics; Z79.899 Other long term (current) drug therapy

== ENCOUNTER 2019-05-12 21:48 | Inpatient (IN) | payer MEDICAID ==
[~2019-05-12] VITALS: Ht 180.3 cm; Wt 74.8 kg
--- NOTE | ~2019-05-12 | DS ---
[place], [place] DISCHARGE SUMMARY NAME: YARELI CARPENTER JR UNIT #: [id number] ROOM: 512 DOCTOR: LINDA YOU MD BIRTHDATE: [birth year] DOS: 05/17/2019 DIAGNOSES: 1. Hematuria. 2. Fever with sepsis pattern, most likely underlying urinary tract infection. Urine culture, however, was negative. 3. Blood cultures initially showed gram-positive in 1 bottle. This most likely was a contaminant. The repeat blood cultures so far have shown no bacterial growth as per micro. 4. Lactic acidosis, possibly from sepsis. 5. Bipolar disorder. 6. Bladder wall thickening. The patient needs to have a cystoscopy as an outpatient. HOSPITAL COURSE: The patient is 54 years old, comes in with complaints of bleeding while urinating. Please refer to H and P for details. He was admitted, was placed on IV fluids, IV antibiotics. He had a high-grade fever for the next 24 hours and became hypotensive, and he had evidence of lactic acidosis even with IV fluids, his hypotension was pronounced, so a bolus of a liter was given, with that there was improvement in the blood pressure. Urine culture has come back negative. Blood culture done in the ER of the two sets one set grew gram-positive. Infectious Disease was consulted. Repeat blood cultures were drawn and these have shown no bacterial growth so far. I did check with microbiology this morning. The patient is not having any complaints, the fever has resolved. He has normal white cell count at 10.0. CT of the abdomen and pelvis shows thickening of the urinary bladder wall, which benefit from a cystoscopy as an outpatient. He did have acute kidney injury, possibly from hypotension from ATN and this is resolved with IV fluids, the kidney functions have normalized. The patient is stable. The plan is to discharge him to home on Levaquin. He is encouraged to have a cystoscopy. [place], [place] DISCHARGE SUMMARY NAME: YARELI CARPENTER JR UNIT #: [id number] ROOM: 512 DOCTOR: LINDA YOU MD BIRTHDATE: [birth year] LINDA YOU MD CM:DISCHARG [id number] LINDA YOU MD 05/17/19 0853 interface
--- NOTE | ~2019-05-12 | PR ---
[place], [place] PROGRESS NOTE [id number] UNIT #: [id number] ROOM: 512 DOCTOR: LINDA YOU MD BIRTHDATE: [birth year] DOS: 05/16/2019 SUBJECTIVE: The patient is doing fairly well, does not have any new complaints. He has been afebrile for the last 24 hours. OBJECTIVE: VITAL SIGNS: Blood pressure is 98/60, pulse of 68, respirations 16, temperature 98.0. LUNGS: Clear. HEART: Regular. ABDOMEN: Obese, soft, nontender. EXTREMITIES: Without any edema. LABORATORY DATA: Urine culture shows no bacterial growth. Blood culture one set done on 05/12 at 2215 is showing Gram-positive cocci. The other set done at 2308 does not show any bacterial growth. This could be a contaminant. Repeat blood cultures are pending. ASSESSMENT AND PLAN: 1. Fever with elevated white cell count, tachycardia and hypotension, possible sepsis, which is complete cultures pending. 2. Urinary tract infection with thickening of his bladder wall and hematuria. The patient is advised to have a cystoscopy done as an outpatient. This was mentioned to the patient in 2017 and has not been done yet. The CT of the abdomen and pelvis does not show any pathology other than the thickened wall. 3. Hypertension, controlled. LINDA YOU MD CM:PNTRANS 0834 1523 LINDA YOU MD 05/16/19 1522 interface
--- NOTE | ~2019-05-12 | EKG ---
[place], [place] ELECTROCARDIOGRAM REPORT NAME: YARELI CARPENTER JR UNIT #: [id number] ROOM: 512 DOCTOR: TRELL DRAFT REPORT BIRTHDATE: [birth year] [facility] Test Date: 2019-05-12 Test Time: 22:15:49 Pat Name: YARELI CARPENTER Department: Room: 512 Gender: M Technical Services Analyst: : 1965 Requested By: ANYA BRANHAM PA-C Order Number: [id number] Reading MD: Mike Walls Measurements Intervals [place] Rate: 116 P: 46 WY: 146 QRS: 49 QRSD: 125 T: -18 QT: 306 QTc: 426 Interpretive Statements Sinus tachycardia Right bundle branch block Minimal ST elevation, inferior leads Baseline wander in lead(s) II,III,aVF Electronically Signed On 05-15-2019 12:42:39 PDT by Mike Walls CM:EKGRPT:ELECTROCARDIOGRAM REPORT 2215 1242 ANYA BRANHAM PA-C EPIPHANY DRAFT REPORT ANYA BRANHAM PA-C
--- NOTE | ~2019-05-12 | PR ---
[place], [place] PROGRESS NOTE NAME: [facility]EL[facility]ENTER [facility] [id number] UNIT #: [id number] ROOM: 512 DOCTOR: LINDA YOU MD BIRTHDATE: [birth year] DOS: SUBJECTIVE: The patient is about the same, does not have any new complaints. OBJECTIVE: VITAL SIGNS: Graphic trend shows a pressure of 122/70, pulse of 76, respirations 18, temperature 98.2. LUNGS: Clear. HEART: Regular. ABDOMEN: Soft. EXTREMITIES: Without any edema. LABORATORY DATA: Blood cultures repeated on the . No reports available yet. ASSESSMENT AND PLAN: 1. Hematuria, most likely from urinary tract infection. She needs to have a cystoscopy. 2. Bladder wall thickening and needing a cystoscopy as an outpatient. Urine culture has come back negative. 3. One blood culture done in the ER was positive. Repeat blood cultures are pending. If they come back negative, the plan is to discharge to home. 4. Sepsis pattern, which is ruled out with negative blood cultures. LINDA YOU MD CM:PNTRANS 0834 09 LINDA YOU MD 05/17/19 0901 interface
--- NOTE | ~2019-05-12 | PR ---
[place], [place] PROGRESS NOTE NAME: [id number] UNIT #: [id number] ROOM: 512 DOCTOR: VERONICA HAAS MD BIRTHDATE: [birth year] DOS: 05/13/2019 SUBJECTIVE: The patient is starting to feel better. OBJECTIVE: VITAL SIGNS: Blood pressure 125/78, heart rate 72 beats per minute, breathing 20 times per minute, and temperature 98 degrees Fahrenheit. GENERAL APPEARANCE: Generalized weakness. HEENT AND NECK: Exam within normal limits. CARDIOVASCULAR SYSTEM: Heart rate is regular in rate and rhythm. S1 and S2 normally audible. LUNGS: Clear to auscultation. ABDOMEN: Soft, nontender. No obvious organomegaly. Bowel sounds are present. EXTREMITIES: Without significant cyanosis or edema. IMPRESSION: 1. The patient is starting to feel better. He had hematuria yesterday. Requires Urology consult as an outpatient. 2. Bipolar disorder. The patient remains on Abilify. 3. Chronic primary insomnia, treated with trazodone. 4. Suspected sepsis being treated with meropenem. Blood cultures have been negative. Urine cultures grew no bacteria. Normal serum electrolytes. CT of the abdomen and pelvis showed some bladder issue with concentric wall thickening and distended bladder, which requires outpatient Urology consult. VERONICA HAAS MD CM:PNTRANS [id number] VERONICA HAAS MD 05/15/19 1020 interface
--- NOTE | ~2019-05-12 | PR ---
[place], [place] PROGRESS NOTE NAME: [facility]EL[facility]PENTER [facility] [id number] UNIT #: [id number] ROOM: 512 DOCTOR: VERONICA HAAS MD BIRTHDATE: [birth year] DOS: 05/15/2019 SUBJECTIVE: The patient continues to feel better, but he had fevers up to 101 degrees Fahrenheit and blood cultures are turning to be positive for Gram-positive cocci in clusters. OBJECTIVE: VITAL SIGNS: Blood pressure 120/79, heart rate 85 beats per minute, breathing 18 times per minute, temperature 98 degrees Fahrenheit, going up to 101 degrees Fahrenheit. GENERAL APPEARANCE: The patient is alert and oriented x 3, in no visible distress. HEENT AND NECK: Exam within normal limits. CARDIOVASCULAR SYSTEM: Heart rate is regular in rate and rhythm. S1 and S2 normally audible. LUNGS: Clear to auscultation. ABDOMEN: Soft, nontender. No obvious organomegaly. Bowel sounds are present. EXTREMITIES: Without significant cyanosis or edema. IMPRESSION: 1. The patient with signs of sepsis, positive blood cultures, being treated with meropenem. IV vancomycin was added and Infectious Disease consult was obtained. 2. CT of the abdomen and pelvis showing urinary bladder issues with concentric wall thickening and distended bladder to be evaluated by Urology as an outpatient. 3. Bipolar disorder. The patient remains on Abilify. 4. Hematuria, which requires outpatient Urology consult. He is not complaining about it anymore. 5. Chronic primary insomnia, treated with trazodone. VERONICA HAAS MD CM:PNTRANS 1750 VERONICA HAAS MD 05/16/19 0049 interface
--- NOTE | ~2019-05-12 | WRIGHTHP ---
[place], [place] PATIENT HISTORY AND PHYSICAL EXAM NAME: YARELI CARPENTER JR UNIT #: [id number] ROOM: 512 DOCTOR: LINDA YOU MD BIRTHDATE: [birth year] DOS: 05/13/2019 HISTORY OF PRESENT ILLNESS: A 54-year-old patient comes in with complaints of hematuria. He states that he has had it just since yesterday afternoon, so he decided to come into the Emergency Room. He denies having any abdominal pain, but he does complain of some minimal burning when he urinates. He denies having any fever, any chills, any chest pains, palpitations or shortness of breath. PAST MEDICAL HISTORY: Significant for similar admission in 2017. He has not seen an urologist or had a cystoscopy done since then. He also has past medical history significant for generalized anxiety disorder and bipolar disorder. MEDICATIONS: Abilify, Xanax, and trazodone. SOCIAL HISTORY: Nonsmoker, does not use any alcohol. PHYSICAL EXAMINATION: GENERAL: He is awake and alert and oriented. VITAL SIGNS: Blood pressure is 107/62, pulse of 109, respirations 18, temperature 100.1, which is the T-max. LUNGS: Diminished breath sounds. Clear. HEART: Regular. ABDOMEN: Soft, nontender. EXTREMITIES: Without any edema. LABORATORY DATA: BUN 18, creatinine 1.57, sodium 140, potassium 3.4, chloride 109, bicarbonate 21. Lactic acid 3.4, glucose 156. Urinalysis: 3+ blood. White cell count is 11.7. Lactic acid 3.9. ASSESSMENT AND PLAN: 1. Lactic acidosis, possibly from sepsis pattern, especially with high-grade fever and tachycardia. Blood cultures and urine cultures have been sent. IV fluids added. 2. Hematuria, possibly from underlying cystitis, but this is second time, he is admitted to the hospital with similar episode. He will need to have a cystoscopy done as an outpatient. 3. Bipolar disorder. Continue home medications. [place], [place] PATIENT HISTORY AND PHYSICAL EXAM NAME: YARELI CARPENTER JR UNIT #: [id number] ROOM: 512 DOCTOR: LINDA YOU MD BIRTHDATE: [birth year] LINDA YOU MD CM:EUGENIOS:PATIENT HISTORY AND PHYSICAL EXAMINATION 0836 9 LINDA YOU MD 05/13/19909 interface
[~2019-05-12 21:48] MED LIST changes: +ABILIFY10 MG PO
[2019-05-12 21:49] VITALS: BP 144/87
[2019-05-12 22:27] LABS: BILIRUBIN NEGATIVE (NEGATIVE); BLOOD 3+ (NEGATIVE); CLARITY CLOUDY (CLEAR); COLOR YELLOW (YELLOW); GLUCOSE NEGATIVE (NEGATIVE); KETONE TRACE (NEGATIVE); LEUKO ESTERASE TRACE (NEGATIVE); NITRITE NEGATIVE (NEGATIVE); PH 5.5 (5.0-9.0); SPECIFIC GRAVITY 1.025 (1.005-1.030); UROBILINOGEN 0.2 E.U./dl (0.2-1.0)
[2019-05-12 22:28] LABS: HEMATOCRIT 44.9 % (42.0-52.0); HEMOGLOBIN 15.4 g/dl (14.0-18.0); MEAN CELL VOLUME 87.4 fl (80.0-94.0); MEAN CORPUSCULAR HGB CONC 34.3 g/dl (33.0-37.0); MEAN PLATELET VOLUME 10.4 fl (9.6-12.3); PLATELET COUNT AUTOMATED 158 10*3/uL (130-400); RED BLOOD COUNT 5.14 10*6/uL (4.50-5.90); RED CELL DISTRI WIDTH 12.7 % (0-14.5); WHITE BLOOD COUNT 11.7 10*3/uL (4.8-10.8)
[2019-05-12 22:34] LABS: RBC TNTC rbc/hpf (0-2)
[2019-05-12 22:38] LABS: INTERNATIONAL NORM RATIO 0.9 (2.0-3.5)
[2019-05-12 22:46] LABS: ALBUMIN 3.7 gm/dl (3.1-4.5); ALKALINE PHOSPHATASE 73 U/L (45-117); BUN 18 mg/dl (7-24); CHLORIDE 109 mmol/L (98-107); CREATININE 1.57 mg/dL (0.70-1.30); POTASSIUM 3.4 mmol/L (3.5-5.1); SGOT/AST 12 IU/L (3-35); SGPT/ALT 22 U/L (12-78); SODIUM 140 mmol/L (136-145); TOTAL PROTEIN 7.5 gm/dL (6.4-8.2)
[2019-05-12 22:47] LABS: TROPONIN I < 0.015 ng/ml (<0.045)
[2019-05-12 22:50] LABS: BASOPHILS 1 % (0-1); PLATELET SUFFICIENCY NORMAL (NORMAL); TOTAL CELLS COUNTED 100 #CELLS
[2019-05-13] VITALS (9 sets, daily range): BP systolic 100–118; BP diastolic 58–71
[2019-05-14] VITALS: BP 95/49
[2019-05-14 06:24] LABS: BUN 10 mg/dl (7-24); CHLORIDE 113 mmol/L (98-107); CREATININE 1.24 mg/dL (0.70-1.30); POTASSIUM 4.2 mmol/L (3.5-5.1); SODIUM 143 mmol/L (136-145)
[2019-05-14 06:50] LABS: BASO % 0.3 % (0.0-1.0); EOS % 0.1 % (1.0-4.0); LYMPH # 1.8 10*3/uL (1.3-4.4); LYMPH % 18.4 % (27.0-41.0); MEAN CELL VOLUME 88.4 fl (80.0-94.0); MEAN CORPUSCULAR HGB 29.9 pg (27.0-31.0); MEAN CORPUSCULAR HGB CONC 33.8 g/dl (33.0-37.0); MEAN PLATELET VOLUME 11.3 fl (9.6-12.3); MONO # 0.4 10*3/uL (0.1-1.0); MONO % 3.7 % (3.0-9.0); NEUT # 7.7 10*3/uL (2.3-7.9); NEUT % 77.1 % (47.0-73.0); RED BLOOD COUNT 4.22 10*6/uL (4.50-5.90); RED CELL DISTRI WIDTH 13.4 % (0-14.5)
[2019-05-14 06:54] LABS: HEMATOCRIT 37.3 % (42.0-52.0); HEMOGLOBIN 12.6 g/dl (14.0-18.0); PLATELET COUNT AUTOMATED 102 10*3/uL (130-400)
[2019-05-14 08:00] VITALS: BP 108/62
[2019-05-14 12:00] VITALS: BP 110/72
[2019-05-14 16:00] VITALS: BP 125/78
[2019-05-14 20:00] VITALS: BP 125/78
[2019-05-15] VITALS: BP 119/76
[2019-05-15 04:00] VITALS: BP 94/60
[2019-05-15 12:00] VITALS: BP 112/69
[2019-05-15 16:00] VITALS: BP 120/79
[2019-05-15 20:00] VITALS: BP 123/77
[2019-05-16] VITALS: BP 78/40; BP 98/60
[2019-05-16 12:00] VITALS: BP 116/81
[2019-05-16 16:00] VITALS: BP 118/65
[2019-05-16 20:00] VITALS: BP 124/78
[2019-05-17] VITALS: BP 120/63
[2019-05-17 07:07] LABS: BUN 12 mg/dl (7-24); CREATININE 0.96 mg/dL (0.70-1.30)
[2019-05-17 07:48] VITALS: BP 122/70
[2019-05-17] MEDS ORDERED: LEVOFLOXACIN500 MG PO (08:35)
== END 2019-05-17 10:20 | disposition home or self-care (01) | DRG 871 ==
LOC: ED 21:48 → 5E 05-13 01:00
PROVIDERS: Physician Assistant; ADMIT Internal Medicine
DX: A41.9 Sepsis, unspecified organism (principal); N17.0 Acute kidney failure with tubular necrosis; N30.01 Acute cystitis with hematuria; F41.1 Generalized anxiety disorder; I10 Essential (primary) hypertension; N32.89 Other specified disorders of bladder; F51.01 Primary insomnia; F20.9 Schizophrenia, unspecified; E78.5 Hyperlipidemia, unspecified; K21.9 Gastro-esophageal reflux disease without esophagitis; F31.9 Bipolar disorder, unspecified; Z88.0 Allergy status to penicillin; Z88.6 Allergy status to analgesic agent; Z88.5 Allergy status to narcotic agent; Z88.1 Allergy status to other antibiotic agents; Z88.8 Allergy status to other drugs, medicaments and biological substances; Z87.440 Personal history of urinary (tract) infections; Z82.3 Family history of stroke; Z82.49 Family history of ischemic heart disease and other diseases of the circulatory system; Z82.5 Family history of asthma and other chronic lower respiratory diseases; Z87.01 Personal history of pneumonia (recurrent)

== ENCOUNTER → 2020-08-16 | Outpatient (CLI) | payer OTHER ==
[~2020-08-16] MED LIST changes: +LEVOFLOXACIN500 MG PO
[2020-08-16 11:57] LABS: BASO % 0.3 % (0.0-1.0); EOS # 0.1 10*3/uL (0.0-0.4); EOS % 1.4 % (1.0-4.0); LYMPH # 3.3 10*3/uL (1.3-4.4); LYMPH % 34.8 % (27.0-41.0); MEAN CELL VOLUME 88.1 fl (80.0-94.0); MEAN CORPUSCULAR HGB 29.2 pg (27.0-31.0); MEAN CORPUSCULAR HGB CONC 33.1 g/dl (33.0-37.0); MEAN PLATELET VOLUME 10.5 fl (9.6-12.3); MONO # 0.5 10*3/uL (0.1-1.0); MONO % 5.3 % (3.0-9.0); NEUT # 5.5 10*3/uL (2.3-7.9); NEUT % 57.9 % (47.0-73.0); PLATELET COUNT AUTOMATED 218 10*3/uL (130-400); RED BLOOD COUNT 5.45 10*6/uL (4.50-5.90); RED CELL DISTRI WIDTH 13.2 % (0-14.5); WHITE BLOOD COUNT 9.5 10*3/uL (4.8-10.8)
[2020-08-16 12:29] LABS: ALBUMIN 3.8 gm/dl (3.1-4.5); BILIRUBIN, DIRECT < 0.1 mg/dL (0.0-0.2); BUN 16 mg/dl (7-24); CHLORIDE 109 mmol/L (98-107); CREATININE 1.14 mg/dL (0.70-1.30); POTASSIUM 3.8 mmol/L (3.5-5.1); SGOT/AST 9 IU/L (3-35); SGPT/ALT 22 U/L (12-78); SODIUM 139 mmol/L (136-145); T3 UPTAKE 32 % (31-39); THYROXINE (T4) TOTAL 11.5 ug/dl (4.5-12.1); TOTAL PROTEIN 7.7 gm/dL (6.4-8.2)
[2020-08-16 12:37] LABS: ALKALINE PHOSPHATASE 76 U/L (45-117)
== END | disposition home or self-care (01) ==
LOC: LAB 11:10
DX: F25.0 Schizoaffective disorder, bipolar type (principal)

== ENCOUNTER → 2021-01-04 | Outpatient (CLI) | payer OTHER ==
[~2021-01-04] MED LIST changes: +DOXYCYCLINE100 M3 PO
== END | disposition home or self-care (01) ==
LOC: COVID19 12:07
PROVIDERS: ATTEND Internal Medicine
DX: Z20.822 Contact with and (suspected) exposure to COVID-19 (principal)

== ENCOUNTER 2021-01-09 16:59 | Emergency (ER) | payer OTHER ==
[~2021-01-09] VITALS: Ht 180.3 cm; Wt 74.8 kg
[~2021-01-09 16:59] MED LIST changes: -DOXYCYCLINE100 M3 PO
[2021-01-09 17:34] LABS: BASO # 0.1 10*3/uL (0.0-0.1); BASO % 0.7 % (0.0-1.0); EOS # 0.3 10*3/uL (0.0-0.4); EOS % 2.6 % (1.0-4.0); HEMATOCRIT 46.9 % (42.0-52.0); LYMPH # 3.3 10*3/uL (1.3-4.4); LYMPH % 33.3 % (27.0-41.0); MEAN CELL VOLUME 87.3 fl (80.0-94.0); MEAN CORPUSCULAR HGB 29.4 pg (27.0-31.0); MEAN CORPUSCULAR HGB CONC 33.7 g/dl (33.0-37.0); MEAN PLATELET VOLUME 9.7 fl (9.6-12.3); MONO # 0.5 10*3/uL (0.1-1.0); MONO % 5.5 % (3.0-9.0); NEUT # 5.6 10*3/uL (2.3-7.9); NEUT % 57.5 % (47.0-73.0); PLATELET COUNT AUTOMATED 212 10*3/uL (130-400); RED BLOOD COUNT 5.37 10*6/uL (4.50-5.90); RED CELL DISTRI WIDTH 13.2 % (0-14.5); WHITE BLOOD COUNT 9.8 10*3/uL (4.8-10.8)
[2021-01-09 17:45] LABS: ACT PARTIAL THROMBO TIME 25.4 SECONDS (20.0-32.1); INTERNATIONAL NORM RATIO 0.9 (2.0-3.5)
[2021-01-09 17:49] LABS: LIPASE 161 U/L (73-393)
[2021-01-09 17:50] LABS: ALBUMIN 3.7 gm/dl (3.1-4.5); ALKALINE PHOSPHATASE 81 U/L (45-117); BUN 10 mg/dl (7-24); CHLORIDE 107 mmol/L (98-107); CREATININE 1.09 mg/dL (0.70-1.30); POTASSIUM 3.8 mmol/L (3.5-5.1); SGOT/AST 80 IU/L (3-35); SGPT/ALT 136 U/L (12-78); SODIUM 140 mmol/L (136-145); TOTAL PROTEIN 7.6 gm/dL (6.4-8.2)
[2021-01-09 17:53] LABS: TROPONIN I < 0.015 ng/ml (<0.045)
[2021-01-09] MEDS ORDERED: DOXYCYCLINE100 M3 PO (18:13)
[2021-01-09 18:26] VITALS: BP 137/91
== END 2021-01-09 18:34 ==
LOC: ED 16:59
PROVIDERS: Emergency Medicine
DX: Z20.822 Contact with and (suspected) exposure to COVID-19 (principal); Z88.0 Allergy status to penicillin; Z88.8 Allergy status to other drugs, medicaments and biological substances; Z88.5 Allergy status to narcotic agent; Z79.899 Other long term (current) drug therapy; Z90.49 Acquired absence of other specified parts of digestive tract

== ENCOUNTER → 2021-05-15 | Outpatient (CLI) | payer OTHER ==
[~2021-05-15] MED LIST changes: +DOXYCYCLINE100 M3 PO
[2021-05-15 14:06] LABS: BASO % 0.4 % (0.0-1.0); EOS # 0.1 10*3/uL (0.0-0.4); EOS % 1.2 % (1.0-4.0); HEMATOCRIT 49.1 % (42.0-52.0); LYMPH # 2.7 10*3/uL (1.3-4.4); LYMPH % 26.2 % (27.0-41.0); MEAN CELL VOLUME 89.4 fl (80.0-94.0); MEAN CORPUSCULAR HGB 29.5 pg (27.0-31.0); MONO # 0.4 10*3/uL (0.1-1.0); MONO % 4.3 % (3.0-9.0); NEUT % 67.6 % (47.0-73.0); PLATELET COUNT AUTOMATED 228 10*3/uL (130-400); RED BLOOD COUNT 5.49 10*6/uL (4.50-5.90); RED CELL DISTRI WIDTH 12.7 % (0-14.5); WHITE BLOOD COUNT 10.4 10*3/uL (4.8-10.8)
[2021-05-15 14:42] LABS: ALBUMIN 3.9 gm/dl (3.1-4.5); ALKALINE PHOSPHATASE 83 U/L (45-117); BUN 11 mg/dl (7-24); CHLORIDE 108 mmol/L (98-107); CHOLESTEROL 248 mg/dL (<200); CREATININE 1.11 mg/dL (0.70-1.30); FREE T4 1.03 ng/dl (0.76-1.46); LDL CHOLESTEROL 147 mg/dL (9-159); POTASSIUM 3.7 mmol/L (3.5-5.1); SGOT/AST 10 IU/L (3-35); SGPT/ALT 20 U/L (12-78); SODIUM 140 mmol/L (136-145); TOTAL PROTEIN 7.9 gm/dL (6.4-8.2); TRIGLYCERIDES 215 mg/dl (<150)
[2021-05-15 15:25] LABS: VITAMIN D, 25-HYDROXY 34.1 ng/mL (30-100)
[2021-05-16 06:07] LABS: HEP B CORE AB, IGM Negative (Negative); HEPATITIS B SURFACE AG Negative (Negative); HEPATITIS C VIRUS ANTIBODY <0.1 s/co (0.0-0.9)
== END | disposition home or self-care (01) ==
LOC: LAB 13:38
PROVIDERS: ATTEND Internal Medicine
DX: N30.01 Acute cystitis with hematuria (principal); D52.9 Folate deficiency anemia, unspecified; D51.9 Vitamin B12 deficiency anemia, unspecified; R70.0 Elevated erythrocyte sedimentation rate; R79.82 Elevated C-reactive protein (CRP); R74.8 Abnormal levels of other serum enzymes; R79.89 Other specified abnormal findings of blood chemistry; R53.81 Other malaise; E55.9 Vitamin D deficiency, unspecified; E03.9 Hypothyroidism, unspecified; Z13.0 Encounter for screening for diseases of the blood and blood-forming organs and certain disorders involving the immune mechanism; Z13.1 Encounter for screening for diabetes mellitus; Z13.21 Encounter for screening for nutritional disorder; Z13.220 Encounter for screening for lipoid disorders; Z00.01 Encounter for general adult medical examination with abnormal findings

== ENCOUNTER → 2021-05-23 | Outpatient (CLI) | payer OTHER | END | disposition home or self-care (01) | LOC: US 11:08 | PROVIDERS: ATTEND Internal Medicine | DX: F10.10 Alcohol abuse, uncomplicated (principal) ==

== ENCOUNTER → 2021-06-18 | Outpatient (CLI) | payer OTHER ==
[2021-06-18 15:05] LABS: CHOLESTEROL 127 mg/dL (<200); CPK 136 U/L (39-308); LDL CHOLESTEROL 53 mg/dL (9-159); TRIGLYCERIDES 96 mg/dl (<150)
== END | disposition home or self-care (01) ==
LOC: LAB 13:41
PROVIDERS: ATTEND Internal Medicine
DX: E78.2 Mixed hyperlipidemia (principal); D52.9 Folate deficiency anemia, unspecified; D51.9 Vitamin B12 deficiency anemia, unspecified; R70.0 Elevated erythrocyte sedimentation rate; R79.82 Elevated C-reactive protein (CRP); R79.89 Other specified abnormal findings of blood chemistry; R53.81 Other malaise; E55.9 Vitamin D deficiency, unspecified; E03.9 Hypothyroidism, unspecified; Z13.0 Encounter for screening for diseases of the blood and blood-forming organs and certain disorders involving the immune mechanism; Z13.1 Encounter for screening for diabetes mellitus; Z13.21 Encounter for screening for nutritional disorder; Z13.220 Encounter for screening for lipoid disorders; Z00.01 Encounter for general adult medical examination with abnormal findings

== ENCOUNTER 2022-11-25 20:40 | Emergency (ER) | payer OTHER ==
[~2022-11-25] VITALS: Ht 180.3 cm; Wt 76.7 kg
[2022-11-25 21:53] VITALS: BP 138/93
[2022-11-25] MEDS ORDERED: METRONIDAZOLE500 M1 PO (22:09)
[2022-11-25] MEDS ORDERED: VIBRAMYCIN100 MG PO (22:09)
== END 2022-11-25 23:28 | disposition home or self-care (01) ==
LOC: ED 20:40
DX: S71.152A Open bite, left thigh, initial encounter (principal); Z23 Encounter for immunization; Z88.0 Allergy status to penicillin; Z88.1 Allergy status to other antibiotic agents; Z88.8 Allergy status to other drugs, medicaments and biological substances; Z90.89 Acquired absence of other organs; Z87.891 Personal history of nicotine dependence; W55.01XA Bitten by cat, initial encounter; Y93.89 Activity, other specified; Y92.89 Other specified places as the place of occurrence of the external cause; Y99.8 Other external cause status

== ENCOUNTER 2022-11-28 15:04 | Emergency (ER) | payer OTHER ==
[~2022-11-28 15:04] MED LIST changes: +METRONIDAZOLE500 M1 PO
== END 2022-11-28 20:45 | disposition left against medical advice (07) ==
LOC: ED 15:04
DX: Z53.21 Procedure and treatment not carried out due to patient leaving prior to being seen by health care provider (principal)

== ENCOUNTER 2022-11-29 11:14 | Emergency (ER) | payer OTHER ==
[~2022-11-29] VITALS: Wt 76.7 kg
[2022-11-29 11:17] VITALS: BP 154/67
== END 2022-11-29 12:06 | disposition home or self-care (01) ==
LOC: ED 11:14
DX: Z23 Encounter for immunization (principal); Z88.0 Allergy status to penicillin; Z88.1 Allergy status to other antibiotic agents; Z88.8 Allergy status to other drugs, medicaments and biological substances; Z90.89 Acquired absence of other organs; Z87.891 Personal history of nicotine dependence

== ENCOUNTER 2022-12-06 13:25 | Emergency (ER) | payer OTHER ==
[2022-12-06 14:05] VITALS: BP 142/85
== END 2022-12-06 14:36 | disposition home or self-care (01) ==
LOC: ED 13:25
DX: S71.152D Open bite, left thigh, subsequent encounter (principal); Z23 Encounter for immunization; Z88.0 Allergy status to penicillin; Z88.6 Allergy status to analgesic agent; Z88.5 Allergy status to narcotic agent; Z88.1 Allergy status to other antibiotic agents; Z90.49 Acquired absence of other specified parts of digestive tract; F41.9 Anxiety disorder, unspecified; F17.200 Nicotine dependence, unspecified, uncomplicated; F12.90 Cannabis use, unspecified, uncomplicated; W54.0XXD Bitten by dog, subsequent encounter

== ENCOUNTER 2022-12-13 10:57 | Emergency (ER) | payer OTHER ==
[~2022-12-13] VITALS: Ht 180.3 cm; Wt 75.3 kg
[2022-12-13 11:01] VITALS: BP 144/78
== END 2022-12-13 11:32 | disposition home or self-care (01) ==
LOC: ED 10:57
DX: S81.852D Open bite, left lower leg, subsequent encounter (principal); Z23 Encounter for immunization; Z88.0 Allergy status to penicillin; Z88.5 Allergy status to narcotic agent; Z88.7 Allergy status to serum and vaccine; Z88.8 Allergy status to other drugs, medicaments and biological substances; Z90.89 Acquired absence of other organs; Z98.890 Other specified postprocedural states; F17.200 Nicotine dependence, unspecified, uncomplicated; F10.90 Alcohol use, unspecified, uncomplicated; F12.90 Cannabis use, unspecified, uncomplicated; F41.9 Anxiety disorder, unspecified; W54.0XXD Bitten by dog, subsequent encounter

== ENCOUNTER → 2024-02-04 | Outpatient (CLI) | payer OTHER ==
[2024-02-04 12:16] LABS: BASO % 0.4 % (0.0-1.0); EOS # 0.1 10*3/uL (0.0-0.4); HEMATOCRIT 49.4 % (42.0-52.0); LYMPH # 2.6 10*3/uL (1.3-4.4); MEAN CELL VOLUME 89.5 fl (80.0-94.0); MEAN CORPUSCULAR HGB 30.1 pg (27.0-31.0); MEAN CORPUSCULAR HGB CONC 33.6 g/dl (33.0-37.0); MEAN PLATELET VOLUME 9.6 fl (9.6-12.3); MONO # 0.5 10*3/uL (0.1-1.0); MONO % 6.5 % (3.0-9.0); NEUT # 4.6 10*3/uL (2.3-7.9); NEUT % 58.7 % (47.0-73.0); PLATELET COUNT AUTOMATED 204 10*3/uL (130-400); RED BLOOD COUNT 5.52 10*6/uL (4.50-5.90); RED CELL DISTRI WIDTH 13.4 % (0-14.5); WHITE BLOOD COUNT 7.9 10*3/uL (4.8-10.8)
[2024-02-04 13:12] LABS: ALKALINE PHOSPHATASE 89 U/L (46-116); BUN 8 mg/dl (9-23); CHLORIDE 107 mmol/L (98-107); CHOLESTEROL 208 mg/dL (<200); FREE T4 1.25 ng/dl (0.89-1.76); LDL CHOLESTEROL 119 mg/dL (9-159); POTASSIUM 4.2 mmol/L (3.4-5.1); SGPT/ALT 57 U/L (5-49); TOTAL PROTEIN 7.7 gm/dL (6.0-8.0); TRIGLYCERIDES 142 mg/dl (<150)
== END | disposition home or self-care (01) ==
LOC: LAB 11:49
PROVIDERS: ATTEND Internal Medicine
DX: E55.9 Vitamin D deficiency, unspecified (principal); F51.01 Primary insomnia; R10.11 Right upper quadrant pain

== ENCOUNTER 2024-06-23 11:28 | Emergency (ER) | payer OTHER ==
[~2024-06-23] VITALS: Ht 180.3 cm; Wt 72.6 kg
[2024-06-23 12:05] VITALS: BP 122/89
[2024-06-23] MEDS ORDERED: VIBRAMYCIN100 MG PO (18:37)
== END 2024-06-23 15:07 | disposition home or self-care (01) ==
LOC: ED 11:28
DX: L02.01 Cutaneous abscess of face (principal); F32.A Depression, unspecified; F41.9 Anxiety disorder, unspecified; J44.9 Chronic obstructive pulmonary disease, unspecified; Z88.0 Allergy status to penicillin; Z88.6 Allergy status to analgesic agent; Z88.1 Allergy status to other antibiotic agents; Z88.5 Allergy status to narcotic agent; Z88.8 Allergy status to other drugs, medicaments and biological substances; Z79.2 Long term (current) use of antibiotics; Z79.899 Other long term (current) drug therapy; Z90.89 Acquired absence of other organs; Z98.890 Other specified postprocedural states

== ENCOUNTER → 2025-02-24 | Outpatient (CLI) | payer OTHER ==
[2025-02-24 11:00] LABS: BASO # 0.1 10*3/uL (0.0-0.1); BASO % 0.6 % (0.0-1.0); EOS # 0.1 10*3/uL (0.0-0.4); EOS % 1.4 % (1.0-4.0); HEMATOCRIT 48.6 % (42.0-52.0); MEAN CELL VOLUME 87.9 fl (80.0-94.0); MEAN CORPUSCULAR HGB 29.8 pg (27.0-31.0); MEAN PLATELET VOLUME 9.6 fl (9.6-12.3); MONO # 0.4 10*3/uL (0.1-1.0); MONO % 4.6 % (3.0-9.0); NEUT # 5.6 10*3/uL (2.3-7.9); NEUT % 64.1 % (47.0-73.0); PLATELET COUNT AUTOMATED 228 10*3/uL (130-400); RED BLOOD COUNT 5.53 10*6/uL (4.50-5.90); RED CELL DISTRI WIDTH 13.3 % (0-14.5); WHITE BLOOD COUNT 8.7 10*3/uL (4.8-10.8)
[2025-02-24 11:44] LABS: ALKALINE PHOSPHATASE 83 U/L (46-116); BUN 10 mg/dl (9-23); CHLORIDE 107 mmol/L (98-107); CHOLESTEROL 197 mg/dL (<200); LDL CHOLESTEROL 110 mg/dL (9-159); POTASSIUM 4.3 mmol/L (3.4-5.1); SGPT/ALT 30 U/L (5-49); TOTAL PROTEIN 7.2 gm/dL (6.0-8.0); TRIGLYCERIDES 128 mg/dl (<150)
== END | disposition home or self-care (01) ==
LOC: LAB 10:41
PROVIDERS: ATTEND Physician Assistant
DX: I45.10 Unspecified right bundle-branch block (principal); F25.0 Schizoaffective disorder, bipolar type

== ENCOUNTER 2025-03-03 13:44 | Emergency (ER) | payer OTHER ==
[~2025-03-03] VITALS: Ht 180.3 cm; Wt 72.6 kg
[2025-03-03 13:49] VITALS: BP 156/96
[2025-03-03] MEDS ORDERED: Gelatin Sponge 1 EACH SPON T ONE (14:00)
[2025-03-03] MEDS ORDERED: VIBRAMYCIN100 MG PO (14:01)
== END 2025-03-03 14:15 | disposition home or self-care (01) ==
LOC: ED 13:44
DX: S61.012A Laceration without foreign body of left thumb without damage to nail, initial encounter (principal); F41.9 Anxiety disorder, unspecified; F17.200 Nicotine dependence, unspecified, uncomplicated; Z88.0 Allergy status to penicillin; Z88.6 Allergy status to analgesic agent; Z88.5 Allergy status to narcotic agent; Z88.8 Allergy status to other drugs, medicaments and biological substances; Z79.899 Other long term (current) drug therapy; Z90.89 Acquired absence of other organs; Z98.890 Other specified postprocedural states; W27.2XXA Contact with scissors, initial encounter; Y93.89 Activity, other specified; Y92.89 Other specified places as the place of occurrence of the external cause; Y99.8 Other external cause status